=== PATIENT | male | born 2000 | race Caucasian/White ===

== ENCOUNTER 2020-12-28 10:57 | Emergency (ER) | payer OTHER ==
[~2020-12-28] VITALS: Ht 167.6 cm; Wt 63.5 kg
[2020-12-28] MEDS ORDERED: KETO10TA2 PO (14:25)
[2020-12-28] MEDS ORDERED: NORFLEX100MG PO (14:25)
[2020-12-28] MEDS ORDERED: MUPIROCIN1 G1 TOP (14:25)
== END 2020-12-28 14:32 | disposition home or self-care (01) ==
LOC: ER 10:57
DX: S00.83XA Contusion of other part of head, initial encounter (principal); S70.02XA Contusion of left hip, initial encounter; S80.12XA Contusion of left lower leg, initial encounter; V49.9XXA Car occupant (driver) (passenger) injured in unspecified traffic accident, initial encounter; Y93.89 Activity, other specified; Y92.488 Other paved roadways as the place of occurrence of the external cause; Y99.8 Other external cause status

== ENCOUNTER 2025-07-02 14:04 | Emergency (ER) | payer OTHER ==
[~2025-07-02] VITALS: Ht 170.2 cm; Wt 77.1 kg
[~2025-07-02 14:04] MED LIST: KETO10TA2 PO; MUPIROCIN1 G1 TOP; NORFLEX100MG PO
[2025-07-02] MEDS ORDERED: IPRATROPIUM/ALBUTEROL SULFATE 3 ML AMPUL.NEB IH ONE (16:15)
[2025-07-02] MEDS ORDERED: CETIRIZINE HCL 5 MG/5 ML ML PO ONE (16:15)
[2025-07-02] MEDS ORDERED: GUAIFENESIN/DEXTROMETHORPHAN 100MG/10ML BLIST.PACK PO ONE (16:30)
[2025-07-02 18:21] LABS: BASO % 1.2 % (0.1-1.2); EOS # 0.33 (0.04-0.54); EOS % 3.3 % (0.7-7.0); LYMPH # 5.05 (1.18-3.74); LYMPH % 49.9 % (19.3-53.1); MEAN PLATELET VOLUME 8.50 fl (9.4-12.4); MONO # 0.80 (0.24-0.82); MONO % 7.9 % (4.7-12.5); NEUT # 3.81 (1.56-6.13); NEUT % 37.5 % (34.0-71.1); RED CELL DISTRIBUTION WIDTH 13.7 % (11.6-14.4)
[2025-07-02 19:25] LABS: COVID-19 AG NEGATIVE (NEGATIVE)
[2025-07-02] MEDS ORDERED: SINGULAIR10 MG PO (21:42)
[2025-07-02] MEDS ORDERED: ALBUTEROL1.25 MG/3 IH (21:42)
[2025-07-02] MEDS ORDERED: ZITHROMAX500 MG PO (21:42)
[2025-07-02] MEDS ORDERED: TUSSIN DM LIQU118 ML PO (21:42)
[2025-07-02] MEDS ORDERED: ZYRTEC10 MG PO (21:42)
[2025-07-02] MEDS ORDERED: IPRATROPIU0.2 MG/1 M IH (21:42)
== END 2025-07-02 22:07 | disposition home or self-care (01) ==
LOC: ER 14:05
PROVIDERS: General Practice
DX: J00 Acute nasopharyngitis [common cold] (principal); J06.9 Acute upper respiratory infection, unspecified; Z20.822 Contact with and (suspected) exposure to COVID-19; Z87.09 Personal history of other diseases of the respiratory system